=== PATIENT | male | born 1960 | race Caucasian/White ===

== ENCOUNTER 2016-12-20 14:21 | Observation (INO) ==
[2016-12-20] MEDS ORDERED: ONDANSETRON 4 MG/2 ML VIAL IV PRN (14:56)
[2016-12-20] MEDS ORDERED: diphenhydrAMINE CAP 25 MG CAPSULE PO PRN (14:56)
[2016-12-20] MEDS ORDERED: DOCUSATE SODIUM 100 MG CAPSULE PO PRN (14:56)
[2016-12-20] MEDS ORDERED: guaiFENesin/DM ER 600-30 MG TABLET PO PRN (14:56)
[2016-12-20] MEDS ORDERED: ACETAMINOPHEN 325 MG TABLET PO PRN ×2 (14:56)
[2016-12-20] MEDS ORDERED: MORPHINE 2 MG/1 ML SYRINGE IV PRN (14:56)
[2016-12-20] MEDS ORDERED: SODIUM CHLORIDE 0.9% 1,000 ML IV SCH (15:00)
[2016-12-20] MEDS ORDERED: ALBUTEROL/IPRATROPIUM 3 ML NEB RESP TX PRN (17:01)
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
[2016-12-20] MEDS ORDERED: ENOXAPARIN 40 MG/0.4 ML SYRINGE SUBCUT SCH (17:30)
[2016-12-20] MEDS: PANTOPRAZOLE 40 MG TABLET PO SCH (17:49)
[2016-12-20 18:08] LABS: Troponin I Only < 0.015 NG/ML (0.00-0.045)
--- NOTE | 2016-12-20 18:19 | Ultrasound Report ---
Exam: US carotid duplex BI Date: 12/20/2016 5:23 PM Indication: Blurred vision Findings: Grayscale color flow analysis and spectral analysis imaging was performed with image stored and captured. Right Flow velocities centimeters per second Common carotid artery: 73 Proximal ICA: 78 Distal ICA: 72 External carotid artery: 155 Vertebral artery: 35 ICA/CCA ratio: 1.1 Measurements in millimeters Distal ICA: 5.8 Left: Flow velocities centimeters per second Common carotid artery: 90 Proximal ICA: 67 Distal ICA: 83 External carotid artery: 127 Vertebral artery: 43 ICA/CCA ratio: 0.9 Measurements in millimeters Distal ICA: 4.8 Grayscale color flow analysis reveals intimal hyperplasia. No spectral broadening with normal color flow and waveforms present. Impression: 1. Mild intimal hyperplasia of the common carotid arteries 2. 0-15% stenosis bilaterally Today studies were performed utilizing indirect NASCET criteria The ultrasound images were stored and captured PROCEDURE INTERPRETED AT [facility] DEPARTMENT OF RADIOLOGY Final Report Signed by: Dr. Trae Frey
[2016-12-20 18:37] LABS: Albumin 3.7 G/DL (3.4-5.0); Bilirubin,Total 0.6 MG/DL (0.2-1.0); Calcium 8.9 MG/DL (8.5-10.1); Osmolality,Calculated 284.8 MOS/KG (273-304); Potassium 4.2 MMOL/L (3.5-5.1); Total Protein 7.1 G/DL (6.4-8.3)
[2016-12-20 18:59] LABS: Risk Ratio 5.83; VLDL CHOLESTEROL 47.2 MG/DL
[2016-12-20] MEDS ORDERED: GABAPENTIN 300 MG CAPSULE PO SCH (21:00)
[2016-12-20 21:44] LABS: Troponin I Only < 0.015 NG/ML (0.00-0.045)
[2016-12-21 05:00] LABS: Basophils # 0.1 10*3/uL (0.0-0.2); Basophils % 1.8 % (0.0-0.8); Eosinophils # 0.2 10*3/uL (0.0-0.87); Eosinophils % 2.9 % (0.00-10.9); Hematocrit 44.6 VOL% (42.0-52.0); Hemoglobin 15.9 GM/DL (14.0-18.0); Immature Granulocytes % 0.4 %; Immature Granulocytes Absolute 0.02 #; Lymphocytes # 2.5 10*3/uL (1.4-4.0); Lymphocytes % 44.3 % (21.2-54.2); Mean Corpuscular HGB Conc 35.7 GM/DL (32-36); Mean Corpuscular Hemoglobin 33 PG (27-34); Mean Corpuscular Volume 92.5 FL (87-102); Mean Platelet Volume 10.6 FL (9.6-12.0); Monocytes # 0.5 10*3/uL (0.11-0.8); Monocytes % 9.2 % (1.7-12.7); Neutrophils # 2.3 10*3/uL (1.4-7.4); Neutrophils % 41.4 % (38.7-73.9); Platelet Count 168 T/CUMM (130-400); Red Blood Count 4.82 MC/CUMM (3.8-5.5); Red Cell Distribution Width 12.9 % (9.3-17.3); White Blood Count 5.5 T/CUMM (4-12)
[2016-12-21 05:38] LABS: Calcium 7.8 MG/DL (8.5-10.1); Osmolality,Calculated 286.8 MOS/KG (273-304); Potassium 3.9 MMOL/L (3.5-5.1)
[2016-12-21 05:47] LABS: Troponin I Only < 0.015 NG/ML (0.00-0.045)
--- NOTE | 2016-12-21 06:08 | EKG Report ---
Stationary ECG Study [facility] Test Date: 12/20/2016 5:08:09 PM Pat Name: LANDON CRAFT Department: Room: 286 Gender: M Administrator Social Welfare: Trish LOPEZ : 1960 Requested by: Mary Kate Childers Order Number: [id number] Reading MD: ANGELO COLEY Intervals [place] Rate: 53 P: 48 WI: 153 QRS: 72 QRSD: 97 T: 71 QT: 443 QTc: 427 Interpretive Statements SINUS BRADYCARDIA Electronically Signed On 12-22-16 07:35:40 CDT by ANGELO COLEY [email or web address]
[2016-12-21] MEDS ORDERED: ASPIRIN 325 MG TABLET PO SCH (09:00)
[2016-12-21] MEDS: PANTOPRAZOLE 40 MG TABLET PO SCH (10:21)
--- NOTE | 2016-12-21 10:24 | Cardiology Consult Note ---
Addendum entered and electronically signed by Doreen Collado NP 12/21/16 10:32 : Mr. Frederick has now decided that he would rather undergo inpatient cardiac stress testing as he does not feel that he will be able to miss another day of work. At this time, I will order a nuclear stress test today as he has been n.p.o. after midnight. Original Note: <Doreen Collado - Last Filed: 12/21/16 09:56> Assessment and Plan - Time spent with patient Time spent with patient: Greater than 30 minutes (1) Atypical chest pain Status: Acute Assessment and plan: SEE PLAN OF CARE LISTED BELOW. Current Visit: Yes (2) GERD (gastroesophageal reflux disease) Status: Chronic Assessment and plan: SEE PLAN OF CARE LISTED BELOW. Current Visit: Yes (3) Neuropathy Status: Chronic Assessment and plan: SEE PLAN OF CARE LISTED BELOW. Current Visit: Yes (4) Smoker Status: Chronic Assessment and plan: SEE PLAN OF CARE LISTED BELOW. Current Visit: Yes History of Present Illness - Data of Consult Patient: new to practice Consult date: 12/21/16 Requesting Physician: Laney Vines - Consult Narrative Reason for consult: Atypical chest pain History of present illness: Delivery Professional: New to cardiology (Dr. Rose) Mr. Frederick is a 56 year old male without known history of coronary artery disease, not routinely followed by cardiology. Patient was transferred from [facility] yesterday evening with complaints of atypical chest pain. Patient has cardiac risk factors significant for current everyday smoker , sedentary lifestyle and family history of premature coronary artery disease ( brother from myocardial infarction at age 46 and dad had CABG in his early 60s). Patient has a past medical history of neuropathy and GERD. Patient reports that he has never had cardiac workup and has never seen a observer helper prior to this admission. 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 He describes this pain as a sharp/stabbing pain located under his left nipple. This was nonradiating and lasted approximately 15-20 minutes. Patient reports that his chest, was not worsened with any exertion. He reports that depending on what position he was in this exacerbated his pain. Unable to identify any alleviating factors. This was associated with diaphoresis. He denies shortness of breath, nausea, vomiting and palpitations/heart racing. He reports that once he sat down his pain was relieved. Once he stood back up, his chest pain returned. He reports that this also lasted approximately 15-20 minutes and went away on its own. At that point, he presented to [facility] emergency department for further evaluation. Once he arrived at the emergency department, he was no longer experiencing chest discomfort. He received 1 dose of Toradol and he reports that he has not had any recurrence of chest discomfort since that time. He then goes on to tell me that he did not want to stay in the emergency department any longer so he left AMA. He then [facility] to get something to eat when he all of a sudden developed blurry vision. This lasted approximately 30 minutes, his is extremely concerned so she took him back to the emergency department. He reports that he did not experience any chest pain, heaviness or tightness with this. He also denied experiencing shortness of breath and diaphoresis. At [facility] he underwent CT of the head which was normal. His blood pressure was only mildly elevated, systolic blood pressure in the 150s. At that point, he was transferred to [facility] to be further evaluated. Upon arrival to [facility] he was chest pain-free. EKG has been normal this admission. He was admitted under hospitalist's service in order to be ruled out for myocardial infarction. Cardiac biomarkers have been negative 3 and EKG has remained without any ischemic changes. Cardiology has been consulted in order to further evaluate patient's chest discomfort. Of note, patient reports that he is a pretty active person. He tells me that he never experiences any chest pain, heaviness or tightness while performing his daily activities. He denies exercise intolerance and dyspnea on exertion. He also denies fever, chills, cough, nausea, vomiting, abdominal pain, heart racing/palpitations, melena, hematochezia, orthopnea, PND and lower extremity swelling. Patient was seen and examined on the telemetry unit. Patient is currently without chest pain, heaviness and tightness. However, upon exam his chest pain was reproducible to light palpation. EKG is unremarkable. Cardiac biomarkers have been negative 3. At this point, patient has ruled out for myocardial infarction and is extremely anxious for discharge home. However, patient does have a risk factors and should undergo further evaluation. I have given given patient the option for either inpatient or outpatient stress testing. He favors having outpatient cardiac stress testing this week at the [facility]. I feel that this is a reasonable plan as patient has a normal EKG and has had negative cardiac biomarkers 3. Patient will be given an appointment for cardiac stress testing this week at [facility]. He will begin follow up with Dr. Rose the following week to review results of this test. ASSESSMENT/PLAN: 1. ATYPICAL CHEST PAIN - Patient's chest pain is very atypical, consistent with musculoskeletal type pain. EKG is normal and cardiac biomarkers have been negative 3. At this point, patient has ruled out for myocardial infarction and is extremely anxious for discharge home. However, patient does have a risk factors and should undergo further evaluation. I have given given patient the option for either inpatient or outpatient stress testing. He favors having outpatient cardiac stress testing this week at the [facility]. I feel that this is a reasonable plan as patient has a normal EKG and has had negative cardiac biomarkers 3. Patient will be given an appointment for cardiac stress testing this week at [facility]. He will begin follow up with Dr. Rose the following week to review results of this test. Recommend that patient be discharged home with medications to treat his chest wall pain. Unable to initiate beta-blockade as patient's heart rate is in the 50s currently. Recommend patient be discharged home with baby aspirin. 2. GERD - Clinically stable. Continue current plan of care with PPI. 3. TOBACCO ABUSE - Counseled patient on importance of tobacco cessation. 4. NEUROPATHY - This certainly may be contributing to patient's atypical chest pain as he has neuropathy to his left side. He reports that he has broken several ribs in the past and he has suffered from neuropathy ever since. Takes gabapentin at home for treatment of this. CC: Laney Vines MD - Home Medications and Allergies Home Medications: Home Medications Medication Instructions Recorded Confirmed Type Esomeprazole Magnesium [Nexium] 40 mg PO DAILY 12/20/16 12/20/16 History Gabapentin 300 mg PO BEDTIME 12/20/16 12/20/16 History Naproxen EC [EC Naprosyn] 500 mg PO DAILY 12/20/16 12/20/16 History Atorvastatin [Lipitor] 40 mg PO DAILY #30 tablet 12/21/16 Rx Allergies/Adverse Reactions: Allergies Allergy/AdvReac Type Severity Reaction Status Date / Time No Known Allergies Allergy Verified 12/20/16 16:13 - Constitutional Constitutional: Absent: anorexia, chills, fatigue, fever(s), frequent falls, headache(s), lethargy, malaise, weakness, weight gain, weight loss - EENT Eyes: Present: blurry vision - Cardiovascular Cardiovascular: Present: as per HPI, chest pain at rest, diaphoresis. Absent: claudication, dyspnea, dyspnea on exertion, edema, radiating jaw, neck or arm pain, orthopnea, palpitations, PND - Respiratory Respiratory: Present: pain on inspiration. Absent: cough, dyspnea, hemoptysis, dyspnea on exertion, change in phlegm color - Gastrointestinal Gastrointestinal: Absent: abdominal pain, change in bowel habits, coffee ground emesis, constipation, heartburn, hematemesis, hematochezia, loose stools, melena , nausea, vomiting - Neurological Neurological: Present: dizziness, other (Blurred vision). Absent: abnormal gait , abnormal speech, behavioral changes, frequent falls, headache(s), paresthesias , syncope - Hematologic/Lymphatic Hematologic/Lymphatic: Absent: easy bleeding, easy bruising, lymphadenopathy Medical,Surgical,& Family Hx - Medical History Neurology: History of: Neurological Problems (neuropathy in left chest after multiple rib fractures) Gastrointestinal: History of: GERD - Surgical History Abdominal Surgeries: Surgical HX of: Appendectomy Orthopedic Surgeries: Surgical HX of;: Orthopedic Surgery (R Foot, BL knee, BL shoulder) - Family History Family History: Reports;: Family Heart Disease (brother at 46 of DE, father also had DE) - Social History Smoking Status: Heavy tobacco smoker Frequency of Alcohol Use: Rarely Type of Drug Use: None Physical Examination Vital Signs Temp Pulse Resp BP Pulse Ox 97.9 F 57 L 20 133/74 95 12/20/16 15:50 12/20/16 15:50 12/20/16 15:50 12/20/16 15:50 12/20/16 15:50 Other: General: Appears well with no apparent distress. Pleasant and cooperative. Appears comfortable. HEENT: PERRL, normocephalic, atraumatic. Mucous membranes moist. No jaundice noted. Conjunctiva moist and clear, sclerae anicteric Neck: No JVD/HJR, no thyromegaly or lymphadenopathy noted. No carotid bruit appreciated Cardiac: Regular rate and rhythm. No murmur rub or gallop. Lungs: Clear to auscultation without accessory muscle use to assist the respiratory pattern. Not requiring oxygen. Chest wall: Left chest is extremely tender to light palpation. Abdomen: Soft, bowel sounds normoactive. Nontender and nondistended. No abdominal bruit or thrill noted. No masses noted. Extremities: No clubbing, cyanosis noted. No edema noted. Upper extremity pulses 2+. Lower extremity pulses 2+. Capillary refill less than 3 seconds. Skin: No unusual lesions or rashes. No skin breakdown appreciated. Neuro: Awake, alert and oriented 3. Moves all extremities well without hemiparesis or paralysis. No essential tremor is appreciated. Result/EKG - Labs CBC & BMP: 12/21/16 03:46 12/21/16 03:46 Lab Results: I have reviewed the past 24 hour labs Labs: Laboratory Results - last 24 hr 12/20/16 12/20/16 12/20/16 16:58 21:07 21:07 WBC RBC Hgb Hct MCV MCH MCHC RDW Plt Count MPV Neut % (Auto) Lymph % (Auto) [place] % (Auto) Eos % (Auto) Baso % (Auto) Neut # (Auto) Lymph # (Auto) [place] # (Auto) Eos # (Auto) Baso # (Auto) Immature Gran % Nucleated RBC % Immature Gran # Nucleated RBCs # Sodium Potassium Chloride Carbon Dioxide Anion Gap BUN Creatinine GFR Calculation BUN/Creatinine Ratio Glucose Hemoglobin A1c 5.2 Calculated Osmolality Calcium Magnesium Total Bilirubin AST ALT Alkaline Phosphatase Total Creatine Kinase 62 60 CK-MB (CK-2) < 1.0 < 1.0 Troponin I < 0.015 < 0.015 Total Protein Albumin Globulin Albumin/Globulin Ratio Triglycerides Cholesterol LDL Cholesterol VLDL Cholesterol HDL Cholesterol Heart Disease Risk Ratio 12/20/16 12/20/16 12/21/16 Unknown Unknown 03:46 WBC 5.5 RBC 4.82 Hgb 15.9 Hct 44.6 MCV 92.5 MCH 33 MCHC 35.7 RDW 12.9 Plt Count 168 MPV 10.6 Neut % (Auto) 41.4 Lymph % (Auto) 44.3 [place] % (Auto) 9.2 Eos % (Auto) 2.9 Baso % (Auto) 1.8 H Neut # (Auto) 2.3 Lymph # (Auto) 2.5 [place] # (Auto) 0.5 Eos # (Auto) 0.2 Baso # (Auto) 0.1 Immature Gran % 0.4 Nucleated RBC % 0.0 Immature Gran # 0.02 Nucleated RBCs # 0.00 Sodium 144 Potassium 4.2 Chloride 107 Carbon Dioxide 25 Anion Gap 16.2 H BUN 13 Creatinine 1.10 GFR Calculation 78 BUN/Creatinine Ratio 11.00 Glucose 77 Hemoglobin A1c Calculated Osmolality 284.8 Calcium 8.9 Magnesium Total Bilirubin 0.60 AST 16 ALT 21 Alkaline Phosphatase 184 H Total Creatine Kinase CK-MB (CK-2) Troponin I Total Protein 7.1 Albumin 3.7 Globulin 3.4 Albumin/Globulin Ratio 1.0 L Triglycerides 236 H Cholesterol 239 H LDL Cholesterol 182.0 VLDL Cholesterol 47.2 HDL Cholesterol 41 Heart Disease Risk Ratio 5.83 12/21/16 12/21/16 03:46 03:47 WBC RBC Hgb Hct MCV MCH MCHC RDW Plt Count MPV Neut % (Auto) Lymph % (Auto) [place] % (Auto) Eos % (Auto) Baso % (Auto) Neut # (Auto) Lymph # (Auto) [place] # (Auto) Eos # (Auto) Baso # (Auto) Immature Gran % Nucleated RBC % Immature Gran # Nucleated RBCs # Sodium 144 Potassium 3.9 Chloride 109 H Carbon Dioxide 26 Anion Gap 12.9 BUN 15 Creatinine 1.00 GFR Calculation 88 BUN/Creatinine Ratio 15.00 Glucose 102 Hemoglobin A1c Calculated Osmolality 286.8 Calcium 7.8 L Magnesium 2.0 Total Bilirubin AST ALT Alkaline Phosphatase Total Creatine Kinase 54 CK-MB (CK-2) < 1.0 Troponin I < 0.015 Total Protein Albumin Globulin Albumin/Globulin Ratio Triglycerides Cholesterol LDL Cholesterol VLDL Cholesterol HDL Cholesterol Heart Disease Risk Ratio - EKG EKG results: interpreted by me, sinus rhythm Specialty Discharge - Follow Up or Referrals Follow up with: Your, PCP [Other] - 1 Week (1 week to stop smoking, follow up on hypercholesterolemia, check BP) <Sourav Rose - Last Filed: 12/21/16 16:55> History of Present Illness - Consult Narrative History of present illness: Mr. Frederick is a 56 year old male CC: Laney Vines MD Physical Examination Vital Signs Temp Pulse Resp BP Pulse Ox 97.9 F 57 L 20 133/74 95 06/12/17 15:50 12/20/16 15:50 12/20/16 15:50 12/20/16 15:50 12/20/16 15:50 Result/EKG - Labs CBC & BMP: 12/21/16 03:46 12/21/16 03:46 Labs: Laboratory Results - last 24 hr 12/20/16 12/20/16 12/20/16 16:58 21:07 21:07 WBC RBC Hgb Hct MCV MCH MCHC RDW Plt Count MPV Neut % (Auto) Lymph % (Auto) [place] % (Auto) Eos % (Auto) Baso % (Auto) Neut # (Auto) Lymph # (Auto) [place] # (Auto) Eos # (Auto) Baso # (Auto) Immature Gran % Nucleated RBC % Immature Gran # Nucleated RBCs # Sodium Potassium Chloride Carbon Dioxide Anion Gap BUN Creatinine GFR Calculation BUN/Creatinine Ratio Glucose Hemoglobin A1c 5.2 Calculated Osmolality Calcium Magnesium Total Bilirubin AST ALT Alkaline Phosphatase Total Creatine Kinase 62 60 CK-MB (CK-2) < 1.0 < 1.0 Troponin I < 0.015 < 0.015 Total Protein Albumin Globulin Albumin/Globulin Ratio Triglycerides Cholesterol LDL Cholesterol VLDL Cholesterol HDL Cholesterol Heart Disease Risk Ratio 12/20/16 12/20/16 12/21/16 Unknown Unknown 03:46 WBC 5.5 RBC 4.82 Hgb 15.9 Hct 44.6 MCV 92.5 MCH 33 MCHC 35.7 RDW 12.9 Plt Count 168 MPV 10.6 Neut % (Auto) 41.4 Lymph % (Auto) 44.3 [place] % (Auto) 9.2 Eos % (Auto) 2.9 Baso % (Auto) 1.8 H Neut # (Auto) 2.3 Lymph # (Auto) 2.5 [place] # (Auto) 0.5 Eos # (Auto) 0.2 Baso # (Auto) 0.1 Immature Gran % 0.4 Nucleated RBC % 0.0 Immature Gran # 0.02 Nucleated RBCs # 0.00 Sodium 144 Potassium 4.2 Chloride 107 Carbon Dioxide 25 Anion Gap 16.2 H BUN 13 Creatinine 1.10 GFR Calculation 78 BUN/Creatinine Ratio 11.00 Glucose 77 Hemoglobin A1c Calculated Osmolality 284.8 Calcium 8.9 Magnesium Total Bilirubin 0.60 AST 16 ALT 21 Alkaline Phosphatase 184 H Total Creatine Kinase CK-MB (CK-2) Troponin I Total Protein 7.1 Albumin 3.7 Globulin 3.4 Albumin/Globulin Ratio 1.0 L Triglycerides 236 H Cholesterol 239 H LDL Cholesterol 182.0 VLDL Cholesterol 47.2 HDL Cholesterol 41 Heart Disease Risk Ratio 5.83 12/21/16 12/21/16 03:46 03:47 WBC RBC Hgb Hct MCV MCH MCHC RDW Plt Count MPV Neut % (Auto) Lymph % (Auto) [place] % (Auto) Eos % (Auto) Baso % (Auto) Neut # (Auto) Lymph # (Auto) [place] # (Auto) Eos # (Auto) Baso # (Auto) Immature Gran % Nucleated RBC % Immature Gran # Nucleated RBCs # Sodium 144 Potassium 3.9 Chloride 109 H Carbon Dioxide 26 Anion Gap 12.9 BUN 15 Creatinine 1.00 GFR Calculation 88 BUN/Creatinine Ratio 15.00 Glucose 102 Hemoglobin A1c Calculated Osmolality 286.8 Calcium 7.8 L Magnesium 2.0 Total Bilirubin AST ALT Alkaline Phosphatase Total Creatine Kinase 54 CK-MB (CK-2) < 1.0 Troponin I < 0.015 Total Protein Albumin Globulin Albumin/Globulin Ratio Triglycerides Cholesterol LDL Cholesterol VLDL Cholesterol HDL Cholesterol Heart Disease Risk Ratio
--- NOTE | 2016-12-21 10:52 | Ultrasound Report ---
Referring Physician: Laney Vines Exam: US gallbladder Date: December 21, 2016 Reason: Left shoulder pain, chest pain Comparison: None Technique: Grayscale and color flow Doppler images of the right abdomen were obtained. Ultrasound images were captured and stored. Findings: The liver measures 13.9 cm in length. No suspicious hepatic lesion is identified. There are multiple echogenic foci within the gallbladder, consistent with gallstones. No gallbladder wall thickening or pericholecystic fluid is identified. The sheet metal worker helper reports a negative sonographic Pereira's sign. The common bile duct is normal in size, measuring 0.2 cm in diameter. The visualized pancreas is unremarkable, and it is partially obscured by bowel gas. The right kidney measures 10.3 x 5.7 x 5.0 cm. No right hydronephrosis or suspicious renal lesion is identified. There is a 1.5 x 1.4 x 1.2 cm simple cyst at the upper pole of the right kidney. No ascites is seen. The visualized IVC appears patent. Impression: Cholelithiasis without sonographic evidence of acute cholecystitis. PROCEDURE INTERPRETED AT [facility] DEPARTMENT OF RADIOLOGY Final Report Signed by: Dr. Teri Méndez
[2016-12-21] MEDS ORDERED: REGADENOSON 0.4 MG/5 ML SYRINGE IV ONE (12:40)
--- NOTE | 2016-12-21 15:25 | Discharge Summary ---
<Laney Vines - Last Filed: 12/21/16 15:22> Hospital Course - Hospital Course Hospital Course: Mr. Frederick is a 56-year-old white male who was admitted by hospitalist service from [facility] with chest pain. His troponins were mildly elevated and his EKG showed normal sinus rhythm with no ST changes. Patient was admitted by Dr. Vines and serial troponins and EKGs were checked. Cardiology was consulted and stress test was performed this morning. He had a low risk scan and can be discharged home with risk factor modification. Patient is also a heavy smoker and he was counseled for [address] Vines about smoking cessation. Patient states he is not prepared to stop and he knows he should. Gallbladder ultrasound was also checked and it showed some cholelithiasis but no signs of cholecystitis. He can follow-up with the surgeon if he has any right upper quadrant pain or nausea after eating. Patient 's triglycerides were elevated so we will start him on lipid-lowering medication and he will need to follow-up with his family physician. Patient will be discharged home on a daily aspirin as well. Patient will also follow- up with Dr. Rose in 2 weeks. Patient's care was coordinated with cardiology , Dr. Vines the hospitalist, nursing, and patient. Care coordination, chart review, and discharge paperwork all took approximately 36 minutes. Diagnosis - Discharge Diagnosis (1) Atypical chest pain Status: Acute (2) Smoker Status: Chronic (3) GERD (gastroesophageal reflux disease) Status: Chronic (4) Neuropathy Status: Chronic Specialty Discharge - Follow Up or Referrals Follow up with: Your, PCP [Other] - 1 Week (1 week to stop smoking, follow up on hypercholesterolemia, check BP) Sourav Rose MD [Physician] - 2 Weeks (with EKG) Discharge Plan - Discharge Data Disposition: Disch To Home/Self Care Condition at Discharge: Stable Discharge Diet: heart healthy Activity: resume usual activities as tolerated - Discharge Medications New Aspirin [Ecotrin] 81 mg PO DAILY #30 tablet. Atorvastatin [Lipitor] 40 mg PO DAILY #30 tablet Continue Naproxen EC [EC Naprosyn] 500 mg PO DAILY Esomeprazole Magnesium [Nexium] 40 mg PO DAILY Gabapentin 300 mg PO BEDTIME - Follow Up or Referral Follow Up: Your, PCP [Other] - 1 Week (1 week to stop smoking, follow up on hypercholesterolemia, check BP) Sourav Rose MD [Physician] - 2 Weeks (with EKG) - Forms/Instructions Exam - Constitutional Vitals: Period Temp Pulse Resp BP Sys/Porter Pulse Ox Last 24 Hr 97 F-98.7 F 46-84 16-20 117-173/64-79 90-99 Discharge Results Procedures and tests throughout hospitalization: Pending Orders 12/21/16 10:35 NM eli perf SPECT rest or str Routine Labs on day of discharge: Labs from last 24 hours 12/21/16 12/21/16 12/21/16 03:47 03:46 03:46 WBC 5.5 RBC 4.82 Hgb 15.9 Hct 44.6 MCV 92.5 MCH 33 MCHC 35.7 RDW 12.9 Plt Count 168 MPV 10.6 Neut % (Auto) 41.4 Lymph % (Auto) 44.3 [place] % (Auto) 9.2 Eos % (Auto) 2.9 Baso % (Auto) 1.8 H Neut # (Auto) 2.3 Lymph # (Auto) 2.5 [place] # (Auto) 0.5 Eos # (Auto) 0.2 Baso # (Auto) 0.1 Immature Gran % 0.4 Nucleated RBC % 0.0 Immature Gran # 0.02 Nucleated RBCs # 0.00 Sodium 144 Potassium 3.9 Chloride 109 H Carbon Dioxide 26 Anion Gap 12.9 BUN 15 Creatinine 1.00 GFR Calculation 88 BUN/Creatinine Ratio 15.00 Glucose 102 Hemoglobin A1c Calculated Osmolality 286.8 Calcium 7.8 L Magnesium 2.0 Total Bilirubin AST ALT Alkaline Phosphatase Total Creatine Kinase 54 CK-MB (CK-2) < 1.0 Troponin I < 0.015 Total Protein Albumin Globulin Albumin/Globulin Ratio Triglycerides Cholesterol LDL Cholesterol VLDL Cholesterol HDL Cholesterol Heart Disease Risk Ratio 12/20/16 12/20/16 12/20/16 Unknown Unknown 21:07 WBC RBC Hgb Hct MCV MCH MCHC RDW Plt Count MPV Neut % (Auto) Lymph % (Auto) [place] % (Auto) Eos % (Auto) Baso % (Auto) Neut # (Auto) Lymph # (Auto) [place] # (Auto) Eos # (Auto) Baso # (Auto) Immature Gran % Nucleated RBC % Immature Gran # Nucleated RBCs # Sodium 144 Potassium 4.2 Chloride 107 Carbon Dioxide 25 Anion Gap 16.2 H BUN 13 Creatinine 1.10 GFR Calculation 78 BUN/Creatinine Ratio 11.00 Glucose 77 Hemoglobin A1c 5.2 Calculated Osmolality 284.8 Calcium 8.9 Magnesium Total Bilirubin 0.60 AST 16 ALT 21 Alkaline Phosphatase 184 H Total Creatine Kinase CK-MB (CK-2) Troponin I Total Protein 7.1 Albumin 3.7 Globulin 3.4 Albumin/Globulin Ratio 1.0 L Triglycerides 236 H Cholesterol 239 H LDL Cholesterol 182.0 VLDL Cholesterol 47.2 HDL Cholesterol 41 Heart Disease Risk Ratio 5.83 12/20/16 12/20/16 21:07 16:58 WBC RBC Hgb Hct MCV MCH MCHC RDW Plt Count MPV Neut % (Auto) Lymph % (Auto) [place] % (Auto) Eos % (Auto) Baso % (Auto) Neut # (Auto) Lymph # (Auto) [place] # (Auto) Eos # (Auto) Baso # (Auto) Immature Gran % Nucleated RBC % Immature Gran # Nucleated RBCs # Sodium Potassium Chloride Carbon Dioxide Anion Gap BUN Creatinine GFR Calculation BUN/Creatinine Ratio Glucose Hemoglobin A1c Calculated Osmolality Calcium Magnesium Total Bilirubin AST ALT Alkaline Phosphatase Total Creatine Kinase 60 62 CK-MB (CK-2) < 1.0 < 1.0 Troponin I < 0.015 < 0.015 Total Protein Albumin Globulin Albumin/Globulin Ratio Triglycerides Cholesterol LDL Cholesterol VLDL Cholesterol HDL Cholesterol Heart Disease Risk Ratio DS: Provider Date of admission: 12/20/16 15:48 Primary care physician: Nonstaff Physician Attending physician on admission: Laney Vines MD Consults: 12/20/16 16:52 Consult to Physician [CONS] Routine Comment: Consulting Provider: Sourav Rose Consulting Provider Notified: Yes Person Notified: Reema Date Notified: 12/20/16 Time Notified: 16:53 Discharging clinician: Laney Vines MD <Mary Kate Childers - Last Filed: 12/21/16 17:18> Hospital Course - Time spent with patient Time with patient DS: Greater than 30 minutes Diagnosis - Discharge Diagnosis (1) Atypical chest pain Status: Resolved (2) Smoker Status: Chronic (3) GERD (gastroesophageal reflux disease) Status: Chronic (4) Neuropathy Status: Chronic Exam - Constitutional Exam: 56-year-old white male, no acute distress, alert and oriented Chest clear CV regular rate and rhythm Abdomen soft and nontender Extremities no edema DS: Provider Expected date of discharge: 12/21/16
[2016-12-21 17:06] VITALS: BP 126/69
--- NOTE | 2016-12-21 18:28 | Nuclear Medicine Report ---
MYOCARDIAL PERFUSION SCAN STUDY BRIEF CLINICAL SUMMARY: The patient is a 56-year-old with atypical chest pain and risk factor of CAD . EXERCISE SESTAMIBI MYOCARDIAL PERFUSION SCAN WITH GATING: The patient was injected with 10 mCi of Se stamibi before being sent for resting images to be obtained. He was then placed on a treadmill where he walked for 8 minutes on a Bryant protocol, but did not achieved target heart rate. He has fatigue and dyspnea on exertion. He was changed over to a Lexiscan study and after receiving Lexiscan, was given 30 mCi of Sestamibi and was later sent for stress imaging to be obtained. He felt to have fair exercise tolerance. The 3-D orthogonal reconstruction view shows some minimal inferior thinning on the rest image in the short and vertical axes, which nearly resolve in the stress images. There is a tiny area of thinning in the stress images at the apex in the horizontal and vertical axes. The gated stress images shows normal LV systolic function with ejection fraction estimated to be 70%. Wall motion is normal by regional wall motion analysis with normal end-diastolic volume. The raw data in cine mode shows no significant patient motion with moderate subdiaphragmatic artifact at the inferoapical segment. IMPRESSION: 1. FAIR EXERCISE TOLERANCE. 2. CLINICALLY AND ELECTROCARDIOGRAPHICALLY INCONCLUSIVE STUDY (CHANGED TO PHARMACOLOGICAL STUDY DUE TO FAILURE TO REACH TARGET HEART RATE). 3. SCINTIGRAPHICALLY NORMAL MYOCARDIAL PERFUSION WITH EXCEPTION OF MILD INFEROAPICAL ABNORMALITY LIK HANS RELATED TO ARTIFACT DETAILED ABOVE. 4. NORMAL LEFT VENTRICULAR SYSTOLIC FUNCTION WITH EJECTION FRACTION ESTIMATED TO BE 70%. 5. WALL MOTION BY REGIONAL WALL MOTION ANALYSIS WITH NORMAL END-DIASTOLIC VOLUME. DISPOSITION: This is a low risk study and did not suggest the presence of significant coronary ische alejandro. The patient's normal LV function and fair exercise tolerance are encouraging with regard to [facility] prognosis. Procedure performed and interpreted at [facility] Department of Radiology.
== END 2016-12-21 18:00 | disposition home or self-care (01) ==
LOC: N.TELEN
PROVIDERS: ADMIT Internal Medicine; ATTEND Internal Medicine